=== PATIENT | male | born 1975 | race African-American/Black ===

== ENCOUNTER 2019-06-10 08:35 | Emergency (ER) | payer BC, OTHER ==
[~2019-06-10] VITALS: Ht 172.7 cm; Wt 89.0 kg
[2019-06-10] MEDS ORDERED: FAMOTIDINE 20MG/2ML VIAL IV STA (08:52)
[2019-06-10] MEDS ORDERED: MAGNESIUM/ALUMINUM HYDROXIDE/SIMETHICONE 30ML UDC PO STA (08:52)
[2019-06-10] MEDS ORDERED: VISCOUS LIDOCAINE 2% 15 ML UDC PO STA (08:52)
[2019-06-10] MEDS ORDERED: SODIUM CHLORIDE 0.9% 1,000 ML IV ONE (08:52)
[2019-06-10 09:35] LABS: EOSINOPHILS % 2.1 % (0.0-5.0); HEMATOCRIT. 44.4 % (42.0-52.0); HEMOGLOBIN. 15.5 g/dL (14.0-18.0); LYMPHOCYTES % 39.6 % (20.0-50.0); MEAN CORPUSCULAR HEMOGLOBIN 31.4 pg (28.0-32.0); MONOCYTES % 8.2 % (2.0-8.0); NEUTROPHILS % 49.1 % (40.0-76.0); PLATELET 235 x1000/uL (130-400); RED BLOOD CELL COUNT 4.94 mill/uL (4.7-6.1)
[2019-06-10 09:41] LABS: CHLORIDE 107 mEq/L (98-107)
[2019-06-10 09:42] LABS: PROTHROMBIN TIME 10.4 sec (9.6-11.0)
[2019-06-10] MEDS ORDERED: METHYLPREDNISOLONE SOD SUCC 125 MG/2 ML VIAL IV ONE (09:45)
[2019-06-10] MEDS ORDERED: DIPHENHYDRAMINE 50MG/ML VIAL IV ONE (09:45)
[2019-06-10 10:06] LABS: CLARITY URINE CLEAR (CLEAR); COLOR URINE YELLOW (YELLOW); KETONES URINE NEGATIVE (NEGATIVE); LEUKOCYTE ESTERASE URINE NEGATIVE (NEGATIVE); NITRITE URINE NEGATIVE (NEGATIVE); OCCULT BLOOD URINE NEGATIVE (NEGATIVE); PROTEIN URINE TRACE (NEGATIVE); SPECIFIC GRAVITY URINE 1.014 (1.005-1.030); UROBILINOGEN URINE 0.2 E.U./dL (0.2-1.0)
[2019-06-10] MEDS ORDERED: SODIUM CHLORIDE 0.9% 1000ML BAG (SEPSIS BOLUS) IV ONE (10:15)
[2019-06-10 12:30] VITALS: BP 142/88
== END 2019-06-10 12:36 | disposition home or self-care (01) ==
LOC: ER 08:49
DX: K29.00 Acute gastritis without bleeding (principal); E86.0 Dehydration; E11.9 Type 2 diabetes mellitus without complications; I10 Essential (primary) hypertension; Z79.84 Long term (current) use of oral hypoglycemic drugs; Z88.6 Allergy status to analgesic agent; Z87.891 Personal history of nicotine dependence
CPT/HCPCS: 36415; 74177; 80053; 81003; 83605; 83690; 84484; 85025; 85610; 87086; 93005; 96361; 96374; 96375; 99284; J1200; J2930; J3490; J7030

== ENCOUNTER 2020-10-01 10:59 | Emergency (ER) | payer BC, MEDICAID ==
[~2020-10-01] VITALS: Ht 167.6 cm; Wt 77.1 kg
[2020-10-01] MEDS ORDERED: ACETAMINOPHEN 325MG TABLET PO STA (11:19)
[2020-10-01] MEDS ORDERED: NITROGLYCERIN OINT 1GM/INCH UDPKT TD ONE (11:30)
[2020-10-01 11:41] LABS: BASOPHILS % 0.6 % (0.0-2.0); EOSINOPHILS % 0.8 % (0.0-5.0); HEMATOCRIT. 43.1 % (42.0-52.0); HEMOGLOBIN. 14.8 g/dL (14.0-18.0); LYMPHOCYTES % 31.6 % (20.0-50.0); MEAN CORPUSCULAR HEMOGLOBIN 30.4 pg (28.0-32.0); MEAN CORPUSCULAR VOLUME 88.5 fL (80.0-94.0); MEAN PLATELET VOLUME 6.9 fl (7.4-10.4); MONOCYTES % 6.2 % (2.0-8.0); NEUTROPHILS % 60.8 % (40.0-76.0); PLATELET 230 x1000/uL (130-400); RED BLOOD CELL COUNT 4.88 mill/uL (4.7-6.1)
[2020-10-01 11:57] LABS: CHLORIDE 103 mEq/L (98-107)
[2020-10-01 14:17] VITALS: BP 121/71
[2020-10-01] MEDS ORDERED: LIDO700A15 TP (14:27)
[2020-10-01] MEDS ORDERED: LOSA50TA41 MT (14:27)
== END 2020-10-01 14:51 | disposition home or self-care (01) ==
LOC: ER 11:06
DX: R07.89 Other chest pain (principal); M54.5 Low back pain; E11.65 Type 2 diabetes mellitus with hyperglycemia; I10 Essential (primary) hypertension; Z87.891 Personal history of nicotine dependence; Z88.6 Allergy status to analgesic agent
CPT/HCPCS: 36415; 71045; 80053; 82962; 84484; 85025; 85379; 93005; 99285; Z7610